=== PATIENT | female | born 1960 | race Caucasian/White ===

== ENCOUNTER → 2021-08-25 | Outpatient (CLI) | payer BC | LOC: EXRD 08-18 10:30 → HEART 5 08-18 11:30 → EXRD 08-24 13:00 → HEART 5 13:30 | DX: R00.2 Palpitations (principal); Z82.49 Family history of ischemic heart disease and other diseases of the circulatory system ==

== ENCOUNTER → 2021-09-13 | Outpatient (CLI) | payer BC | LOC: US 09-09 10:30 | DX: M54.9 Dorsalgia, unspecified (principal); G89.29 Other chronic pain | CPT/HCPCS: 93979 ==

== ENCOUNTER → 2021-10-21 | Outpatient (CLI) | payer BC | LOC: HEART 5 10-11 08:30 | DX: I20.9 Angina pectoris, unspecified (principal); I47.1 Supraventricular tachycardia; R00.2 Palpitations; I08.1 Rheumatic disorders of both mitral and tricuspid valves | CPT/HCPCS: 78452; A9502 ==